=== PATIENT | female | born 1960 | race Caucasian/White ===

== ENCOUNTER 2025-06-25 20:50 | Emergency (ER) | payer SELFPAY ==
[~2025-06-25] VITALS: Ht 162.6 cm; Wt 100.2 kg
[2025-06-25 21:50] VITALS: TEMP 99.6
[2025-06-25] MEDS: IBUPROFEN 600 MG TAB PO ONE (21:50)
[2025-06-25 21:53] LABS: BASO # 0.0 10^3/uL (0.0-0.2); BASO % 0.2 % (0.0-1.0); EOS # 0.1 10^3/uL (0.0-0.5); EOS % 0.8 % (0.0-3.0); LYMPH # 0.4 10^3/uL (1.5-5.0); LYMPH % 4.5 % (24.0-44.0); MONO # 0.2 10^3/uL (0.0-0.8); MONO % 2.6 % (2.0-8.0); NEUTROPHILS # 8.4 10^3/uL (1.5-8.5); NEUTROPHILS % 91.4 % (36.0-66.0); PLATELET COUNT, AUTOMATED 277 10^3/uL (150-450)
[2025-06-25 22:06] LABS: INR 0.95
[2025-06-25 22:40] LABS: C REACTIVE PROTEIN QUANTITATIV 1.37 MG/DL (<1.0)
[2025-06-25] MEDS: CEFDINIR 300 MG CAP PO ONE (23:40)
[2025-06-26] MEDS ORDERED: CEFD1CAP9 PO (00:54)
[2025-06-26 03:30] VITALS: O2SAT 94
[2025-06-26] MEDS ORDERED: LASI20TA3 PO (03:38)
[2025-06-26] MEDS ORDERED: DOXY-440 PO (03:38)
[2025-06-26] MEDS ORDERED: AMOX875T2 PO (03:38)
[2025-06-26 03:45] VITALS: BP 170/82
== END 2025-06-26 03:45 | disposition left against medical advice (07) ==
LOC: M ED 20:50
DX: R42 Dizziness and giddiness (principal); I10 Essential (primary) hypertension; L03.90 Cellulitis, unspecified; Z53.9 Procedure and treatment not carried out, unspecified reason; Z88.1 Allergy status to other antibiotic agents; Z88.5 Allergy status to narcotic agent; Z88.8 Allergy status to other drugs, medicaments and biological substances; Z88.6 Allergy status to analgesic agent